=== PATIENT | male | born 2000 | race Caucasian/White ===

== ENCOUNTER 2023-11-28 15:17 | Emergency (ER) | payer OTHER ==
[~2023-11-28] VITALS: Ht 175.3 cm; Wt 75.7 kg
[2023-11-28] MEDS ORDERED: STRA80CA PO (15:33)
[2023-11-28] MEDS ORDERED: TETRACAINE 0.5% OPHTH SOLN 4ML OU ONE (17:25)
[2023-11-28] MEDS ORDERED: FLUORESCEIN OPHTH 1MG STRIP OD ONE (17:30)
[2023-11-28] MEDS ORDERED: FLUORESCEIN OPHTH 1MG STRIP OU ONE (17:30)
[2023-11-28] MEDS ORDERED: TETRACAINE 0.5% OPHTH SOLN 4ML OD ONE (17:30)
[2023-11-28] MEDS ORDERED: OPTI0.5D2 OP (19:44)
[2023-11-28 19:50] VITALS: BP 129/86; TEMP 97.5; O2SAT 100
== END 2023-11-28 19:51 | disposition home or self-care (01) ==
LOC: M ED 15:17
DX: H53.141 Visual discomfort, right eye (principal); Z79.899 Other long term (current) drug therapy

== ENCOUNTER → 2024-01-25 | Outpatient (CLI) | payer OTHER ==
[~2024-01-25] MED LIST: OPTI0.5D2 OP; STRA80CA PO
== END ==
LOC: M RAD 16:49
DX: J34.2 Deviated nasal septum (principal)